=== PATIENT | female | born 1990 | race Two or more races ===

== ENCOUNTER 2022-10-14 10:47 | Emergency (ER) | payer MEDICAID, OTHER ==
[~2022-10-14] VITALS: Ht 157.5 cm; Wt 59.3 kg
[2022-10-14 12:15] VITALS: BP 141/98
[2022-10-14] MEDS ORDERED: KETOROLAC TROMETH 30 MG/ML 1ML VIAL IM ONE (13:00)
[2022-10-14] MEDS ORDERED: AMOX-277 PO (13:02)
[2022-10-14] MEDS ORDERED: IBUP600T28 PO (13:02)
[2022-10-14] MEDS ORDERED: ACET1CAP14 PO (13:12)
== END 2022-10-14 13:22 | disposition home or self-care (01) ==
LOC: ER 10:47
DX: H72.91 Unspecified perforation of tympanic membrane, right ear (principal); Z79.1 Long term (current) use of non-steroidal anti-inflammatories (NSAID); Z79.2 Long term (current) use of antibiotics; Z88.5 Allergy status to narcotic agent
CPT/HCPCS: 96372; 99283; J1885